=== PATIENT | female | born 1990 | race Caucasian/White ===

== ENCOUNTER 2019-11-03 13:29 | Emergency (ER) | payer SELFPAY ==
[~2019-11-03] VITALS: Ht 167.6 cm; Wt 55.0 kg
[2019-11-03 15:08] LABS: CHLORIDE 105 mEq/L (98-107)
[2019-11-03 15:12] LABS: ETHANOL BLOOD < 10 mg/dL
[2019-11-03 15:19] LABS: BASOPHILS % 0.5 % (0.0-2.0); EOSINOPHILS % 0.5 % (0.0-5.0); HEMATOCRIT. 38.3 % (36.0-48.0); HEMOGLOBIN. 13.2 g/dL (12.0-16.0); LYMPHOCYTES % 22.6 % (20.0-50.0); MEAN CORPUSCULAR HEMOGLOBIN 30.1 pg (28.0-32.0); MEAN CORPUSCULAR VOLUME 87.2 fL (81.0-99.0); MEAN PLATELET VOLUME 8.4 fl (7.4-10.4); MONOCYTES % 9.2 % (2.0-8.0); NEUTROPHILS % 67.2 % (40.0-76.0); PLATELET 208 x1000/uL (130-400); RED BLOOD CELL COUNT 4.39 mill/uL (4.2-5.4); RED CELL DISTRIBUTION WIDTH 13.3 % (11.6-14.6)
[2019-11-03 15:25] LABS: HCG SCREEN NEGATIVE
[2019-11-03 15:30] LABS: CLARITY URINE CLEAR (CLEAR); COLOR URINE DARK YELLOW (YELLOW); KETONES URINE 4+ (NEGATIVE); LEUKOCYTE ESTERASE URINE 1+ (NEGATIVE); NITRITE URINE NEGATIVE (NEGATIVE); OCCULT BLOOD URINE NEGATIVE (NEGATIVE); PH URINE 6.5 (4.5-8.0); PROTEIN URINE TRACE (NEGATIVE); SPECIFIC GRAVITY URINE 1.033 (1.005-1.030)
[2019-11-03 15:44] LABS: *BENZODIAZEPINES SCREEN URINE NEGATIVE (NEGATIVE); *COCAINE SCREEN URINE NEGATIVE (NEGATIVE); OPIATES URINE SCREEN NEGATIVE (NEGATIVE); PHENCYCLIDINE URINE SCREEN NEGATIVE (NEGATIVE)
[2019-11-03 15:46] LABS: *BARBITURATES SCREEN URINE NEGATIVE (NEGATIVE)
[2019-11-03 15:47] LABS: METHADONE URINE SCREEN NEGATIVE (NEGATIVE)
[2019-11-03 15:51] LABS: *AMPHETAMINES SCREEN URINE PRESUMTIVE POSITIVE (NEGATIVE); CANNABINOID URINE SCREEN PRESUMTIVE POSITIVE (NEGATIVE)
[2019-11-03] MEDS: QUETIAPINE FUMARATE 50MG TABLET PO SCH (21:16)
[2019-11-04] MEDS ORDERED: BENZTROPINE MESYLATE 1MG/1ML 2ML AMP IM SCH (01:00)
[2019-11-04] MEDS: QUETIAPINE FUMARATE 50MG TABLET PO SCH (09:00)
[2019-11-04 12:55] VITALS: BP 92/65
== END 2019-11-04 14:30 ==
LOC: ER 13:29
DX: F15.129 Other stimulant abuse with intoxication, unspecified (principal)
CPT/HCPCS: 36415; 80053; 80305; 80307; 80320; 80329; 81003; 81025; 84703; 85025; 96372; 99285; J0515; Z7610; G0480